=== PATIENT | female | born 1985 | race Caucasian/White ===

== ENCOUNTER 2016-11-10 22:57 | Emergency (ER) | payer OTHER ==
[~2016-11-10] VITALS: Ht 165.1 cm; Wt 65.0 kg
[~2016-11-10 22:57] MED LIST: NAPR-260 PO
[2016-11-10 23:13] VITALS: Ht 165.1 cm; Wt 65.0 kg
[2016-11-11 01:59] LABS: ADD SCAN DIFF NO
--- NOTE | 2016-11-11 02:02 | ERD ---
ER Documentation Chief Complaint Date/Time DATE: 11/11/16 TIME: 02:00 Chief Complaint abd pain, vag bleed. +preg. Spotting since yesterday, worse today HPI 31-year-old female presents here in emergency department for complaints of vaginal bleeding that started yesterday, pelvic pain started today. Patient is approximately 6 weeks . 5 para 2 2. Last menstruation 09/03/2016, had a recent ultrasound done, was told to have 6 weeks . Patient denies any flank pain. Patient describes the pelvic pain as cramping pain 4/10 scale, accompanying the vaginal bleeding. Patient denies any fever or chills. Patient denies any nausea or vomiting. Patient denies any diarrhea or constipation. ROS All systems reviewed and are negative except as per history of present illness. Medications Home Meds Active Scripts Naproxen* (Naprosyn*) 500 Mg Tablet, 500 MG PO BID Y for PAIN AND/OR INFLAMMATION, #30 TAB Prov:MITCHELL ALONOS PA-C 09/23/16 Allergies Allergies: Coded Allergies: No Known Allergy (Unverified , 11/11/16) PMhx/Soc Medical and Surgical Hx: pt denies Medical Hx, pt denies Surgical Hx History of Surgery: No Anesthesia Reaction: No Hx Neurological Disorder: No Hx Respiratory Disorders: No Hx Cardiac Disorders: No Hx Psychiatric Problems: No Hx Miscellaneous Medical Probl: No Hx Alcohol Use: No Hx Substance Use: No Hx Tobacco Use: No Smoking Status: Never smoker FmHx Family History: No coronary disease, No diabetes, No other Physical Exam Vitals Vital Signs Date Time Temp Pulse Resp B/P Pulse Ox O2 Delivery O2 Flow Rate FiO2 11/10/16 23:13 98.1 59 18 128/76 100 Physical Exam GENERAL: The patient is well developed and appropriate for usual state of health, in no apparent distress. CHEST: Clear to auscultation bilaterally. There are no rales, wheezes or rhonchi. HEART: Regular rate and rhythm. No murmurs, clicks, rubs or gallops. No S3 or S4. ABDOMEN: Soft, nontender and nondistended. Good bowel sounds. No rebound or guarding. No gross peritonitis. No gross organomegaly or masses. No Huynh sign or McBurney point tenderness. BACK: No midline or flank tenderness. EXTREMITIES: Equal pulses bilaterally. There is no peripheral clubbing, cyanosis or edema. No focal swelling or erythema. Full range of motion. Grossly neurovascularly intact. NEURO: Alert and oriented. Cranial nerves 2-12 intact. Motor strength in all 4 extremities with 5/5 strength. Sensation grossly intact. Normal speech and gait. SKIN: There is no apparent rash or petechia. The skin is warm and dry. HEMATOLOGIC AND LYMPHATIC: There is no evidence of excessive bruising or lymphedema. No gross cervical, axillary, or inguinal lymphadenopathy. VAGINAL: Small amount of blood in the vaginal vault, cervical os closed. No cervical motion tenderness or adnexal tenderness noted. Result Diagram: 11/11/16 0135 Results 24 hrs Laboratory Tests Test 11/11/16 01:30 11/11/16 01:35 Urine Color YELLOW Urine Clarity SLIGHTLY CLOUDY Urine pH 6.0 Urine Specific [place] 1.023 Urine Ketones NEGATIVEmg/dL Urine Nitrite NEGATIVEmg/dL Urine Bilirubin NEGATIVEmg/dL Urine Urobilinogen NEGATIVEmg/dL Urine Leukocyte Esterase NEGATIVELeu/ul Urine Microscopic RBC > 182/HPF Urine Microscopic WBC 2/HPF Urine Mucus FEW/HPF Urine Hemoglobin 3+mg/dL Urine Glucose NEGATIVEmg/dL Urine Total Protein NEGATIVEmg/dl White Blood Count 9.010^3/ul Red Blood Count 3.9110^6/ul Hemoglobin 12.1g/dl Hematocrit 35.7% Mean Corpuscular Volume 91.3fl Mean Corpuscular Hemoglobin 30.9pg Mean Corpuscular Hemoglobin Concent 33.9g/dl Red Cell Distribution Width 12.3% Platelet Count 93453^3/UL Mean Platelet Volume 10.1fl Neutrophils % 54.0% Lymphocytes % 38.2% Monocytes % 5.7% Eosinophils % 1.2% Basophils % 0.6% Nucleated Red Blood Cells % 0.0/100WBC Neutrophils # 4.910^3/ul Lymphocytes # 3.510^3/ul Monocytes # 0.510^3/ul Eosinophils # 0.110^3/ul Basophils # 0.110^3/ul Nucleated Red Blood Cells # 0.010^3/ul Beta HCG, Quantitative 3827.7mIU/ml PROCEDURE: US OB Pelvis. CLINICAL INDICATION: , vaginal bleeding. TECHNIQUE: Multiple sonographic images of the pelvis were obtained utilizing a transabdominal and endovaginal technique. The images were reviewed on a PACS workstation. COMPARISON: None. FINDINGS: No viable intrauterine is identified. The endometrial echo complex is heterogeneous and measures 1.5 cm in thickness. Mild vascular flow is identified within the endometrial canal with Doppler imaging. The right ovary has a normal echotexture and measures 3.9 x 2.4 x 2.7 cm. The left ovary has a normal echotexture and measures 2.7 x 1.6 x 2.0 cm. Vascular flow is demonstrated to both ovaries. No adnexal masses are noted. There is no evidence for free fluid. IMPRESSION: 1. No viable intrauterine . If there is clinical concern for ectopic , close follow-up with serial Beta HCG and possible repeat pelvic ultrasound is recommended. 2. Heterogeneous 1.5 cm thick endometrium with mild vascular flow. This is nonspecific but could represent products of conception in the setting of an in progress. Continued follow-up is recommended. 3. Normal appearance of the ovaries. RPTAT: HTAR .Luigi Clark MD, MD Date Time Electronically viewed and signed by .Luigi Clark MD, MD on 11/11/2016 02:25 .R/ CC: TALYA WHYTE DENTURE LABORATORY TECHNICIAN Procedures/MDM Medical Decision Making: Patients vaginal bleeding is most likely consistent of spontaneous , no injury during noted, there is thickened endometrium possibly consistent with in progress. Patient does not show any evidence of hypovolemic shock. Patients hemoglobin and hematocrit is stable. There is low suspicion for ectopic . STACEY results not show any intrauterine , shows a thickened endometrium with possible in progress. BetaHCG Quantitative is still elevated, most likely is consistent with ongoing . The patient is Rh+, does not need RhoGAM this time. There is no signs of symptoms of dehydration. There is low suspicion for sepsis. Patient appears well and is hemodynamically stable. Disposition: Home. Condition: Stable Prescription: Tylenol Instructions: Patient is advised to do bed rest, avoid heavy lifting, and avoid having sex until cleared by OB doctor. Patient is advised to follow up with OB doctor or here at the ER in 48 hours for reevaluation of symptoms, repeat beta HCG quantitative and ultrasound. Patient is advised that is symptoms are worst, severe bleeding, dizziness, severe abdominal pain, fever, worst signs and symptoms to return to the emergency department immediately. Departure Diagnosis: Primary Impression: Threatened Condition: Stable Patient Instructions: Possible Miscarriage (Threatened ) Additional Instructions: Patient is advised to do bed rest, avoid heavy lifting, and avoid having sex until cleared by OB doctor. Patient is advised to follow up with OB doctor or here at the ER in 48 hours for reevaluation of symptoms, repeat beta HCG quantitative and ultrasound. Patient is advised that is symptoms are worst, severe bleeding, dizziness, severe abdominal pain, fever, worst signs and symptoms to return to the emergency department immediately. TALYA WHYTE NP Nov 11, 2016 02:02
[2016-11-11 02:03] LABS: BASOPHIL # 0.1 10^3/ul (0.0-0.1); BASOPHILS % 0.6 % (0.0-2.0); EOSINOPHILS # 0.1 10^3/ul (0.0-0.5); EOSINOPHILS % 1.2 % (0.0-7.0); HEMATOCRIT 35.7 % (37.0-47.0); HEMOGLOBIN 12.1 g/dl (12.0-16.0); LYMPHOCYTES # 3.5 10^3/ul (0.8-2.9); LYMPHOCYTES % 38.2 % (15.0-51.0); MEAN CORPUSCULAR HEMOGLOBIN 30.9 pg (29.0-33.0); MEAN CORPUSCULAR HGB CONC 33.9 g/dl (32.0-37.0); MEAN CORPUSCULAR VOLUME 91.3 fl (82.0-101.0); MEAN PLATELET VOLUME 10.1 fl (7.4-10.4); MONOCYTE # 0.5 10^3/ul (0.3-0.9); MONOCYTES % 5.7 % (0.0-11.0); NEUTROPHIL # 4.9 10^3/ul (1.6-7.5); PLATELET COUNT 270 10^3/UL (140-415); RED BLOOD COUNT 3.91 10^6/ul (4.20-5.40); RED CELL DISTRIBUTION WIDTH 12.3 % (11.5-14.5)
[2016-11-11 02:10] LABS: ADD UMIC YES; UR ASCORBIC ACID 40 mg/dL (NEGATIVE); UR BILIRUBIN (Dip) NEGATIVE (NEGATIVE); UR BLOOD (Dip) 3+ mg/dL (NEGATIVE); UR CLARITY SLIGHTLY CLOUDY (CLEAR); UR COLOR YELLOW (YELLOW); UR GLUCOSE (Dip) NEGATIVE (NEGATIVE); UR KETONES (Dip) NEGATIVE (NEGATIVE); UR LEUKOCYTE ESTERASE (Dip) NEGATIVE Leu/ul (NEGATIVE); UR MUCUS FEW /HPF (NONE SEEN); UR NITRITE (Dip) NEGATIVE (NEGATIVE); UR RBC > 182 /HPF (0-5); UR SPECIFIC GRAVITY (Dip) 1.023 (1.003-1.030); UR TOTAL PROTEIN (Dip) NEGATIVE (NEGATIVE); UR UROBILINOGEN (Dip) NEGATIVE (NEGATIVE)
--- NOTE | 2016-11-11 02:26 | RADRPT ---
PROCEDURE: US OB Pelvis. CLINICAL INDICATION: , vaginal bleeding. TECHNIQUE: Multiple sonographic images of the pelvis were obtained utilizing a transabdominal and endovaginal technique. The images were reviewed on a PACS workstation. COMPARISON: None. FINDINGS: No viable intrauterine is identified. The endometrial echo complex is heterogeneous and m easures 1.5 cm in thickness. Mild vascular flow is identified within the endometrial canal with Dopp ler imaging. The right ovary has a normal echotexture and measures 3.9 x 2.4 x 2.7 cm. The left ovary has a norm al echotexture and measures 2.7 x 1.6 x 2.0 cm. Vascular flow is demonstrated to both ovaries. No adnexal masses are noted. There is no evidence for free fluid. IMPRESSION: 1. No viable intrauterine . If there is clinical concern for ectopic , close follo w-up with serial Beta HCG and possible repeat pelvic ultrasound is recommended. 2. Heterogeneous 1.5 cm thick endometrium with mild vascular flow. This is nonspecific but could rep resent products of conception in the setting of an in progress. Continued follow-up is rec ommended. 3. Normal appearance of the ovaries. RPTAT: HTAR .Luigi Clark MD, Date Time Electronically viewed and signed by .Luigi Clark MD, on 11/11/2016 02:25 .R/
[2016-11-11] MEDS ORDERED: ACET500C5 PO (03:21)
== END 2016-11-11 03:50 | disposition home or self-care (01) ==
LOC: FTE 22:57
DX: O20.0 Threatened abortion (principal); R10.2 Pelvic and perineal pain; Z3A.01 Less than 8 weeks gestation of pregnancy
CPT/HCPCS: 36415; 76801; 76817; 81001; 84702; 85025; 86900; 86901; Z7502